=== PATIENT | female | born 1985 | race Caucasian/White ===

== ENCOUNTER 2018-04-23 11:49 | Inpatient (IN) | payer OTHER ==
[2018-04-23] MEDS ORDERED: Sodium Citrate/Citric Acid* 15 ML UDC PO ONE (12:32)
[2018-04-23] MEDS ORDERED: ceFOXitin 2 GM IVPREMIX* 2 GM/50 ML BAG IVPB ONE (12:32)
[2018-04-23] MEDS ORDERED: Sodium Citrate/Citric Acid* 15 ML UDC ONE (12:40)
--- NOTE | 2018-04-23 12:40 | HP ---
General Information - Reason for Visit at 38 weeks EGA, breech presentation in Labor. - General Information Maternal Age: 33 Grav: 1 Para: 0 SAB: 0 IEA: 0 Estimated Due Date: 05/03/18 Determined By: Early Ultrasound Gestational Age in Weeks/Days: 38 4/7 weeks Maternal Blood Type and Rh: A Positive - Results this Serology/RPR Result: Non-Reactive Rubella Result: Immune HBsAg Result: Negative HIV Result: Negative GBS Culture Result: Positive Past Medical History Delivery History: See Records Pertinent Past Medical History: See Records Past Medical History Comment: Irritable bowel syndrome Acid Refulx Anxiety on SSRI's Pertinent Past Surgical History: See Records Past Surgical History Comment: Right Knee Surgery 2012 Tonsils/adenoids Randall tooth extraction Pertinent Family History: See Records - Antepartal Records Antepartal Records: Reviewed, Complicated by: - Gestational diabetes diet controlled Review of Systems Constitutional: Uncomfortable CV Complaint: No Respiratory: Shortness of Breath: No Gastrointestinal: No Nausea/Vomiting, Normal Bowel Movement Genitourinary: No Dysuria, No Bleeding, No Leaking Fluid Musculoskeletal: No Complaint, No Epigastric Pain, Contractions Neurological: No Headache, No Visual Changes Movement: Normal Exam Allergies/Adverse Reactions: Allergies No Known Allergies Allergy (Verified 04/12/18 11:02) Temp 99.2 BP 116/70 RR 18 P 80 POx 100% RA - Measurements Height: 5 ft 4 in Weight: 151 lb Weight in lbs: 151.247357 Body Mass Index (BMI): 25.9 Pre- Weight: 114 lb 0.016 oz Weight Gained This : 36.999 lbs and 0 ozs - Exam Breast: Breast Exam Deferred CVA: No CVA Tenderness Extremities: No Edema Heart: Normal Rhythm/Heart Sounds HEENT: No Significant Findings Lungs: Clear Bilaterally Rectal: Rectal Exam Deferred Reflexes: DTR 2+ Thyroid: No Thyromegaly - Abdominal Exam Abdomen Exam: Non-Tender, Fundal Height Consistent with Dates - Ultrasound/Biophysical Profile Ultrasound Status: Bedside Exam Ultrasound Findings: Breech presentation, head at left maternal side with spine on right maternal side. Targeted Exam Findings See L&D Outpatient Visit Provider Note for Findings: N/A Cervical Exam: 1cm Presenting Part: Breech Membrane Status: Intact Bleeding/Discharge: None EFM Findings - External Monitor Findings Baseline Heart Rate: 130 External Monitor Findings: Variability Minimal Contractions: Regular, 45-90 Seconds Assessment/Plan - Assessment 33 y/o at 38+ weeks ega in labor with fetus in breech presentation. - Obstetrical Risk Factors Obstetrical Risk Factors: Gestational Diabetes - Diet controlled, Breech - Plan Plan: IV Hydration, Expedite C/S Delivery, Antibiotic Prophylaxis, C/S Delivery - Date/Time of Admission Date of Admission: 04/23/18 Time of Admission: 12:20
[2018-04-23] MEDS ORDERED: ceFOXitin 2 GM IVPREMIX* 2 GM/50 ML BAG ONE (12:41)
[2018-04-23 12:45] LABS: ABS Basophils 0.1 10^3/ul (0-0.2); ABS Eosinophils 0 10^3/ul (0-0.6); ABS Lymphocytes 1.4 10^3/ul (1.0-4.8); ABS Monocytes 0.8 10^3/ul (0-0.8); ABS Neutrophils 11.2 10^3/ul (1.5-7.7); ABS Nucleated RBC 0 10^3/ul; Eosinophil % 0.3 % (0-6); Hematocrit 37 % (35-47); Hemoglobin 12.5 g/dl (12.0-16.0); Lymphocyte % 10.6 % (25-47); Mean Corpuscular HGB Conc 34 g/dl (31-36); Mean Corpuscular Hemoglobin 30 pg (27-31); Mean Corpuscular Volume 90 fL (80-97); Mean Platelet Volume 10.1 fL (7.4-10.4); Nucleated Red Blood Cells % 0.1; Platelet Count 212 10^3/ul (150-450); Red Cell Distribution Width 14 % (10.5-15); White Blood Count 13.6 10^3/ul (3.5-10.8)
[2018-04-23] MEDS ORDERED: Naloxone* 0.4 MG/ML 1 ML VIAL IV PRN ×2 (13:51→13:53)
[2018-04-23] MEDS ORDERED: fentaNYL* 50 MCG/ML 2 ML VIAL (100 MCG VIAL) IV PRN (13:51)
[2018-04-23] MEDS ORDERED: Ondansetron INJ* 2 MG/ML VIAL IV PRN ×2 (13:51→13:53)
[2018-04-23] MEDS ORDERED: Nalbuphine* 10 MG/ML 1 ML VIAL IV PRN (13:53)
[2018-04-23] MEDS ORDERED: oxyCODONE/Acetamin 5/325 MG* TAB PO PRN (13:53)
[2018-04-23] MEDS ORDERED: diPHENhydraMINE IV* 50 MG/ML 1 ml VIAL (BENADRYL) IV PRN (13:53)
[2018-04-23] MEDS ORDERED: Dibucaine 1% 28.35 GM TUBE PR PRN (14:23)
[2018-04-23] MEDS ORDERED: Acetaminophen TAB* 325 MG PO PRN (14:23)
[2018-04-23] MEDS ORDERED: Ibuprofen TAB* 600 MG PO PRN (14:23)
[2018-04-23] MEDS ORDERED: Zolpidem TAB* 5 MG PO PRN (14:23)
[2018-04-23] MEDS ORDERED: Glycerin ADULT SUPP PR PRN (14:23)
[2018-04-23] MEDS ORDERED: Witch Hazel PAD* JAR TOPICAL PRN (14:23)
[2018-04-23] MEDS: Ketorolac INJ* 30 MG/ML 1 ML VIAL IV PRN ×2 (15:26→20:49)
[2018-04-23] MEDS: Simethicone TAB* 80 MG TAB.CHEW PO SCH ×2 (17:59→20:49)
[2018-04-23] MEDS: oxyCODONE/Acetamin 5/325 MG* TAB PO PRN ×2 (17:59→20:50)
[2018-04-23] MEDS: Docusate CAP* 100 MG PO SCH (20:49)
[2018-04-24] MEDS: oxyCODONE/Acetamin 5/325 MG* TAB PO PRN ×7 (00:01→23:53)
[2018-04-24] MEDS: Ketorolac INJ* 30 MG/ML 1 ML VIAL IV PRN (03:42)
[2018-04-24] MEDS ORDERED: Acetaminophen TAB* 325 MG PO PRN (05:20)
[2018-04-24 06:28] LABS: ABS Basophils 0.1 10^3/ul (0-0.2); ABS Eosinophils 0.1 10^3/ul (0-0.6); ABS Lymphocytes 1.6 10^3/ul (1.0-4.8); ABS Monocytes 0.8 10^3/ul (0-0.8); ABS Neutrophils 7.9 10^3/ul (1.5-7.7); ABS Nucleated RBC 0 10^3/ul; Eosinophil % 1.1 % (0-6); Hematocrit 34 % (35-47); Hemoglobin 11.6 g/dl (12.0-16.0); Lymphocyte % 15.1 % (25-47); Mean Corpuscular HGB Conc 34 g/dl (31-36); Mean Corpuscular Hemoglobin 31 pg (27-31); Mean Corpuscular Volume 91 fL (80-97); Mean Platelet Volume 9.4 fL (7.4-10.4); Nucleated Red Blood Cells % 0; Platelet Count 171 10^3/ul (150-450); Red Blood Count 3.71 10^6/ul (4.00-5.40); Red Cell Distribution Width 14 % (10.5-15); White Blood Count 10.5 10^3/ul (3.5-10.8)
[2018-04-24] MEDS: Simethicone TAB* 80 MG TAB.CHEW PO SCH ×4 (07:35→20:49)
[2018-04-24] MEDS: Docusate CAP* 100 MG PO SCH ×3 (07:35→20:49)
[2018-04-24] MEDS ORDERED: Ferrous Gluconate TAB* 324 MG TAB PO SCH (09:00)
[2018-04-24] MEDS ORDERED: Ibuprofen TAB* 600 MG ONE (10:09)
[2018-04-24] MEDS: Sertraline* 25 MG TAB PO SCH (12:31)
[2018-04-24] MEDS: Ibuprofen TAB* 600 MG PO PRN (22:10)
[2018-04-25] MEDS: Ibuprofen TAB* 600 MG PO PRN ×4 (04:08→23:25)
[2018-04-25] MEDS: oxyCODONE/Acetamin 5/325 MG* TAB PO PRN ×5 (04:08→23:25)
[2018-04-25] MEDS: Docusate CAP* 100 MG PO SCH ×3 (08:43→20:03)
[2018-04-25] MEDS: Prenatal Vitamin TAB PO SCH (08:43)
[2018-04-25] MEDS: Sertraline* 25 MG TAB PO SCH (08:43)
[2018-04-25] MEDS: Simethicone TAB* 80 MG TAB.CHEW PO SCH ×4 (08:43→20:03)
[2018-04-25] MEDS: DHA PO SCH (10:38)
--- NOTE | 2018-04-25 11:47 | PTEDU ---
Patient Name: SUNDEEP FERRO PILLO SUNDEEP selected video: Never Ever Shake a Baby to view on 04/25/2018 at 11:47:10 AM from [facility] [id number]
[2018-04-25 21:03] VITALS: BP 115/59
[2018-04-26] MEDS: oxyCODONE/Acetamin 5/325 MG* TAB PO PRN ×3 (03:32→12:31)
[2018-04-26] MEDS: Docusate CAP* 100 MG PO SCH (08:02)
[2018-04-26] MEDS: DHA PO SCH (08:02)
[2018-04-26] MEDS: Sertraline* 25 MG TAB PO SCH (08:02)
[2018-04-26] MEDS: Simethicone TAB* 80 MG TAB.CHEW PO SCH (08:02)
[2018-04-26] MEDS: Prenatal Vitamin TAB PO SCH (08:07)
--- NOTE | 2018-04-26 10:23 | PTEDU ---
Patient Name: SUNDEEP FERRO PILLOSUNDEEP PERKINS selected video: BBOB: Bonding Through Infant Massage to view on 04/26/2018 at 10:22:12 [email or web address]
[2018-04-26] MEDS: Ibuprofen TAB* 600 MG PO PRN (12:31)
--- NOTE | 2018-04-27 13:53 | OP ---
CC: Dr. Brianna Mccormick, [facility] * DATE OF OPERATION: 04/23/18 - ROOM #103 DATE OF : 89 SURGEON: Ld Adrian MD SERVICE DEPARTMENT MANAGER: Dr. Brianna Mccormick ANESTHESIA: Spinal. PRE-OP DIAGNOSIS: Intrauterine at 38 weeks, in labor, with a breech presentation. POST-OP DIAGNOSIS: Intrauterine at 38 weeks, in labor, with a breech presentation. OPERATIVE PROCEDURE: Primary low transverse section. ESTIMATED BLOOD LOSS: 700 cc. SPECIMENS SENT TO PATHOLOGY: Cord blood. FLUIDS: She received 2600 cc of IV crystalloid fluid. URINE OUTPUT: Her urine output was 150 cc of clear urine. FINDINGS: Delivery of a viable male infant over meconium-stained fluid with nuchal cord x1 in breech presentation. The placenta was grossly intact with the 3-vessel cord noted. The uterus, adnexa, bowel, and bladder were all within normal limits and there were no complications during this procedure. DESCRIPTION OF PROCEDURE: The patient was taken to the operating room where she was identified. She was placed on the operating room table where a spinal anesthetic was obtained without difficulty. She was then placed in the supine position with a leftward tilt, prepped and draped in a normal sterile fashion. A Pfannenstiel skin incision was then made with a knife and carried through to the underlying layer of fascia. The fascia was then nicked in the midline and extended laterally with curved León scissors. The fascia was then grasped superiorly and inferiorly with Mignon clamps and dissected off sharply from the rectus muscle. The rectus muscle was in the midline bluntly. The peritoneum was identified, grasped with pickups, and entered sharply with Metzenbaum scissors. The peritoneum was then extended superiorly and inferiorly sharply. A bladder blade was inserted into the patient's abdomen. A bladder flap was created using Metzenbaum scissors over which the bladder blade was then reinserted. A low transverse uterine incision was made with a knife. The 's bottom was then grasped and the baby was delivered through a breech extraction. After delivery, the nose and mouth were suctioned. The cord was clamped and cut and the infant was handed off to the awaiting office assistant. Cord bloods were obtained. The placenta was removed manually. The uterus was then exteriorized, cleared off all clot and debris using moist laparotomy sponges. The uterine incision was then closed using 0 Polysorb suture in a running locked fashion with the second imbricating layer of 0 Polysorb suture with good hemostasis noted. At this point, the uterus was returned to the patient's abdomen. The gutters were then cleared of all clot and debris using moist laparotomy sponges and normal saline for irrigation of fluid. Irrigation fluid was suctioned. The sponges were removed from the patient's abdomen. The peritoneum was then closed using 3-0 Polysorb suture in a running fashion. The fascia was closed using 0 Polysorb suture in a running fashion and the skin was closed with 4-0 Monocryl subcuticular stitch. The patient tolerated the procedure well. Sponge, lap, and needle counts were correct x2. She was then transferred to the recovery room area in stable condition. [id number]/[facility] #: [id number] [place]
== END 2018-04-26 13:21 | disposition home or self-care (01) | DRG 788 ==
LOC: MCHOB 11:49
PROVIDERS: ADMIT Obstetrics & Gynecology; ATTEND Obstetrics & Gynecology
PROC: 10D00Z1 Extraction of Products of Conception, Low, Open Approach (ICD-10-PCS; 2018-04-23)
PROC: 4A1HXCZ Monitoring of Products of Conception, Cardiac Rate, External Approach (ICD-10-PCS; principal; 2018-04-23 13:13)
DX: O32.1XX0 Maternal care for breech presentation, not applicable or unspecified (principal); O99.344 Other mental disorders complicating childbirth; O24.420 Gestational diabetes mellitus in childbirth, diet controlled; F41.9 Anxiety disorder, unspecified; O99.62 Diseases of the digestive system complicating childbirth; O77.0 Labor and delivery complicated by meconium in amniotic fluid; O99.824 Streptococcus B carrier state complicating childbirth; O69.81X0 Labor and delivery complicated by cord around neck, without compression, not applicable or unspecified; K21.9 Gastro-esophageal reflux disease without esophagitis; K58.9 Irritable bowel syndrome, unspecified; Z3A.38 38 weeks gestation of pregnancy; Z37.0 Single live birth
CPT/HCPCS: 36415; 76815; 85025; 86850; 86900; 86901; A9270-GY; J0694; J1885